=== PATIENT | male | born 1945 | race Caucasian/White ===

== ENCOUNTER 2019-11-09 08:05 | Outpatient (CLI) | payer MEDICARE, OTHER ==
[~2019-11-09] VITALS: Ht 185.6 cm; Wt 99.8 kg
[2019-11-09] MEDS ORDERED: COREG12.5 MG PO (08:49)
[2019-11-09] MEDS ORDERED: GLUCOPHAGE1000 MG PO (08:49)
[2019-11-09] MEDS ORDERED: VALIUM 5MG T5 MG/TAB PO (08:50)
[2019-11-09] MEDS ORDERED: GLUCOTROL XL2.5 MG PO (08:51)
[2019-11-09] MEDS ORDERED: CYMBALTA 60MG60 MG PO (08:51)
[2019-11-09] MEDS ORDERED: NAPROSYN500 MG PO (08:52)
[2019-11-09] MEDS ORDERED: [UNRECOGNIZED DRUG - OTHER] (08:53)
[2019-11-09 09:12] VITALS: BP 171/91; PULSE 69; TEMP 98.7
--- NOTE | 2019-11-09 10:45 | NUR ---
PT RETURNED TO [facility] VIA W/C, REPORT WAS THAT PT HAD NEGATIVE RESULTS. UP IN ROOM TOLERATED WELL, REVIEWED DISCHARGE INST. TO TTT WITH VERBAL UNDERSTANDING. 158/88, 97%, PULSE 66, RR AT 16. INT D'CD INTACT. PT UP TO B/R THEN DISCHARGED AMB. TO LOBBY
== END 2019-11-09 11:15 | disposition home or self-care (01) ==
LOC: COL.CAR 08:05
DX: I95.1 Orthostatic hypotension (principal); E78.2 Mixed hyperlipidemia; E11.9 Type 2 diabetes mellitus without complications; I10 Essential (primary) hypertension; Z79.84 Long term (current) use of oral hypoglycemic drugs; Z79.52 Long term (current) use of systemic steroids

== ENCOUNTER 2019-12-10 09:05 | Outpatient (CLI) | payer MEDICARE, OTHER ==
[~2019-12-10] VITALS: Ht 185.4 cm; Wt 103.0 kg
[~2019-12-10 09:05] MED LIST: COREG12.5 MG PO; CYMBALTA 60MG60 MG PO; GLUCOPHAGE1000 MG PO; GLUCOTROL XL2.5 MG PO; NAPROSYN500 MG PO; VALIUM 5MG T5 MG/TAB PO; [UNRECOGNIZED DRUG - OTHER]
[2019-12-10 09:21] VITALS: BP 174/91; PULSE 74; TEMP 98.8
[2019-12-10 09:44] LABS: HEMATOCRIT 41.4 % (42.0-52.0); HEMOGLOBIN 14.2 g/dl (13.5-18.0); MEAN CELL VOLUME 87 fl (80.0-100.0); MEAN CORPUSCULAR HEMOGLOBIN 30 pg (27.0-31.0); MEAN CORPUSCULAR HGB CONC 34 g/dl (33.0-37.0); MEAN PLATELET VOLUME 9.9 fl (7.4-10.4); PLATELET COUNT 176 K/mm3 (130-400); RED BLOOD COUNT 4.75 M/mm3 (4.20-5.60); REDCELL DISTRIBUTION WIDTH-CV 13.6 % (11.5-14.5)
[2019-12-10 09:52] LABS: CALCIUM 9.3 mg/dL (8.4-10.2); CREATININE, serum 0.89 (0.66-1.25); MAGNESIUM 1.5 mg/dL (1.6-2.3); POTASSIUM 4.3 mmol/L (3.4-5.0)
[2019-12-10 11:21] VITALS: BP 156/86; PULSE 75
== END 2019-12-10 11:15 | disposition home or self-care (01) ==
LOC: COL.CAR 09:05
PROVIDERS: Internal Medicine Adult Congenital Heart Disease
DX: I95.1 Orthostatic hypotension (principal); E11.9 Type 2 diabetes mellitus without complications; I10 Essential (primary) hypertension; I27.20 Pulmonary hypertension, unspecified; Z79.84 Long term (current) use of oral hypoglycemic drugs; Z79.52 Long term (current) use of systemic steroids; E78.2 Mixed hyperlipidemia

== ENCOUNTER 2022-01-17 11:49 | Emergency (ER) | payer MEDICARE ==
[~2022-01-17] VITALS: Ht 185.4 cm; Wt 100.0 kg
[2022-01-17 11:50] VITALS: TEMP 98.7
[2022-01-17 12:43] LABS: HEMOGLOBIN 11.8 g/dl (13.5-18.0); MEAN CELL VOLUME 84 fl (80.0-100.0); MEAN CORPUSCULAR HEMOGLOBIN 29 pg (27-31); MEAN CORPUSCULAR HGB CONC 35 g/dl (33.0-37.0); MEAN PLATELET VOLUME 9.9 fl (7.4-10.4); PLATELET COUNT 249 K/mm3 (130-400); RED BLOOD COUNT 4.06 M/mm3 (4.20-5.60); REDCELL DISTRIBUTION WIDTH-CV 12.3 % (11.5-14.5)
[2022-01-17 12:59] LABS: ALBUMIN 3.4 gm/dL (3.4-4.8); BILIRUBIN,TOTAL 1.1 mg/dL (0.2-1.2); C-REACTIVE PROTEIN 8.1 mg/dL (0.00-0.50); CALCIUM 9.7 mg/dL (8.4-10.2); CREATININE, serum 1.35 mg/dL (0.72-1.25); POTASSIUM 4.3 mmol/L (3.5-4.5); TOTAL PROTEIN 6.9 gm/dL (6.2-8.1)
[2022-01-17 13:03] LABS: LYMPHOCYTE 44 % (20.0-51.0); NEUTROPHILS 47 % (42.0-75.2)
[2022-01-17 13:05] LABS: PLATELET ESTIMATE NORMAL (NORMAL)
[2022-01-17] MEDS ORDERED: AMOXICILLIN875 MG PO (13:27)
[2022-01-17] MEDS ORDERED: DOXYCYCLINE 10100 MG PO (13:27)
[2022-01-17 14:25] VITALS: BP 165/93; PULSE 78
== END 2022-01-17 14:27 | disposition home or self-care (01) ==
LOC: COL.ER 11:49
PROVIDERS: Physician Assistant
DX: L03.115 Cellulitis of right lower limb (principal); E11.9 Type 2 diabetes mellitus without complications; Z79.4 Long term (current) use of insulin; Z79.84 Long term (current) use of oral hypoglycemic drugs
CPT/HCPCS: J0690; J7030

== ENCOUNTER 2022-08-22 12:35 | Emergency (ER) | payer MEDICARE ==
[~2022-08-22] VITALS: Ht 185.4 cm; Wt 97.7 kg
[~2022-08-22 12:35] MED LIST changes: +AMOXICILLIN875 MG PO; +DOXYCYCLINE 10100 MG PO
[2022-08-22 12:40] VITALS: BP 140/60; TEMP 98.1
[2022-08-22 14:58] VITALS: PULSE 61
[2022-08-24] MEDS ORDERED: AMOXICILLIN 8751 TAB PO ×3 (18:35→19:03)
== END 2022-08-22 14:58 | disposition home or self-care (01) ==
LOC: COL.ER 12:35
DX: S02.2XXA Fracture of nasal bones, initial encounter for closed fracture (principal); S00.11XA Contusion of right eyelid and periocular area, initial encounter; S00.531A Contusion of lip, initial encounter; S00.81XA Abrasion of other part of head, initial encounter; Z79.02 Long term (current) use of antithrombotics/antiplatelets; W01.198A Fall on same level from slipping, tripping and stumbling with subsequent striking against other object, initial encounter; Y92.480 Sidewalk as the place of occurrence of the external cause